=== PATIENT | male | born 1970 | race Caucasian/White ===

== ENCOUNTER 2018-10-24 10:37 | Inpatient (IN) ==
[2018-10-24] MEDS ORDERED: IOPAMIDOL 100 ML BOTTLE IV ONE (10:38)
[2018-10-24] MEDS ORDERED: IPRATROPIUM/ALBUTEROL 3 ML AMPUL.NEB NEB ONE ×2 (10:43→15:42)
[2018-10-24] MEDS ORDERED: NITROGLYCERIN 1 GM OINT.TOP TD ONE (10:48)
[2018-10-24] MEDS ORDERED: ASPIRIN 81 MG TAB.CHEW CHEWED ONE (10:51)
[2018-10-24] MEDS ORDERED: methylPREDNISolone SOD SUCC 125 MG/2 ML VIAL IV ONE (10:54)
--- NOTE | 2018-10-24 10:58 | Emergency Department Note ---
SOB HPI - General Chief Complaint: Shortness of Breath/Dyspnea Stated Complaint: SOB, Chest Pressure Time Seen by Provider: 10/24/18 10:54 Source: patient Mode of arrival: ambulatory Limitations: no limitations - History of Present Illness Patient presents to ED with a history of shortness of breath progressive for the lastweek. His breathing has been getting progressively worse over the course of the last week. Initially size practitioner and was put on the medication for left knee swelling, this seemed to develop into generalized edema that he had of his hands as well as feet and legs. 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 He thought he was a rear having a reaction to the medication stop that medicine and then they put him on some medicine for swelling but he was progressively developing more swelling up. Progressive dyspnea over the course of the last week not associated with chest pain but with lower leg edema but he's also developed hand edema and generalized body swelling. Positive family of cardiac history on his father's side. Smoker one pack a day. MD Complaint: shortness of breath, cough Onset (ago): day(s) Severity: severe Consistency/Duration: constant Improves with: oxygen Worsens with: lying flat, exertion Associated symptoms: Denies: chest pain - Related Data Home Medications Medication Instructions Recorded Confirmed Unobtainable 10/24/18 10/24/18 Allergies Allergy/AdvReac Type Severity Reaction Status Date / Time No Known Drug Allergies Allergy Verified 10/24/18 10:42 Review of Systems Constitutional: Denies: fever, chills Cardiovascular: Reports: dyspnea on exertion, orthopnea, edema Respiratory: Reports: shortness of breath, cough, other (nonproductive cough.) Past Medical History - Past Medical History Source: nursing notes reviewed Medical history: Reports: arthritis, obesity Surgical history ED: Reports: non-contributory Family history: Reports: CAD/NV, other (father of myocardial infarction at an early age.) - Social History smoking status: Current every day smoker Alcohol use: Reports: Occasionally Drug use: Reports: none Physical Exam Limitations: no limitations General appearance: alert, in distress Head: atraumatic, normocephalic, normal inspection Eye: Present: normal appearance, PERRL, EOMI. Absent: conjunctival injection ENT: normal exam, normal oropharynx, mucous membranes moist, TM's normal bilaterally, normal external ear exam, other (facial erythema) Neck: Present: normal inspection, full ROM, trachea midline. Absent: tenderness, meningismus Chest: Present: normal inspection, symmetric chest wall rise Respiratory: Present: normal lung sounds bilaterally, respiratory distress, rales/crackles, wheezes, accessory muscle use, prolonged expiratory phase Cardiovascular: Present: regular rate, tachycardia, normal heart sounds Abdominal: Present: distention, diminished bowel sounds. Absent: tenderness, guarding Extremities: Present: full ROM, normal capillary refill, pedal edema, pretibial edema. Absent: tenderness, cyanosis, clubbing Back: Present: normal inspection, full ROM. Absent: CVA tenderness (R), CVA tenderness (L), paraspinal tenderness Neurological: Present: alert, oriented X3, CN II-XII intact. Absent: motor sensory deficit Psychiatric: Present: normal affect Skin: Present: warm, diaphoretic, rash, erythema, other (erythematous rash to the distended portion of the lower abdomen.). Absent: cyanosis Course - Reevaluation(s) Reevaluation #1: Patient Initially given O2, nonrebreather. His oxygenation was 70% on room air initially on arrival. Notably also his diastolic blood pressure was 120, 180- 190 systolic. He has generalized diffuse edema throughout especially the lower extremities, 12-lead EKG nondiagnostic no acute ST elevation however does have late transition. Chest x-ray not showing any acute pulmonary edema or infiltrates. Patient started on breathing treatments, Solu-Medrol as he does have a significant smoking history. One pack-a-day smoker for many years. Reevaluation #2: Patient started on DuoNeb treatments, Solu-Medrol as well as nitroglycerin as he had uncontrolled hypertension. In reviewing his labs it does appear that he has a response to the Solu-Medrol as well as the breathing treatments, we were able to wean him from initially nonrebreather to 5 L nasal cannula. I spoke with Dr. Vasquez regarding his labs and presentation and he wanted to get a CT of his chest. This was ordered. 12-lead EKG showing sinus tachycardia. Late transition. Indeterminate IVCD. Vital Signs Temperature 97.3 F 10/24/18 10:38 Pulse Rate 120 H 10/24/18 10:38 Respiratory Rate 32 H 10/24/18 10:38 Pulse Oximetry (%) 76 L 10/24/18 10:38 Temperature 97.3 F 10/24/18 10:38 Pulse Rate 101 H 10/24/18 11:47 Respiratory Rate 20 10/24/18 11:47 Blood Pressure 157/82 10/24/18 11:47 Pulse Oximetry (%) 100 10/24/18 11:47 Shortness of Breath/Dyspnea - MDM Narrative Medical decision making narrative: Impression COPD exacerbation. Untreated hypertension. Diabetes mellitus, new onset. Morbid obesity. - Lab Data Result diagrams: 10/24/18 10:52 10/24/18 10:52 Lab Results 10/24/18 10/24/18 10/24/18 Range/Units 10:52 10:52 10:52 WBC 8.7 (4.5-11.0) K/mcL RBC 5.39 (4.50-5.90) M/mcL Hgb 16.0 (13.5-16.5) g/dL Hct 50.6 (41.0-55.0) % MCV 93.8 (80.0-100.0) fL MCH 29.6 (26.0-34.0) pg MCHC 31.6 (31.0-36.0) g/dL RDW 14.2 (11.5-14.5) % Plt Count 183 (140-440) K/mcL MPV 9.4 (7.4-10.4) fL Gran % 77.4 (38.0-78.0) % Lymph % (Auto) 12.8 L (15.5-49.0) % [place] % (Auto) 8.1 (1.0-12.0) % Eos % (Auto) 1.5 (0.0-7.0) % Baso % (Auto) 0.2 (0.0-2.0) % Gran # 6.7 (1.8-8.0) K/mcL Lymph # (Auto) 1.1 L (1.5-4.8) K/mcL [place] # (Auto) 0.7 (0.1-0.9) K/mcL Eos # (Auto) 0.1 (0.0-0.7) K/mcL Baso # (Auto) 0 (0.0-0.3) K/mcL Sodium 135 (133-145) mmol/L Potassium 4.2 (3.3-5.1) mmol/L Chloride 92 L (96-108) mmol/L Carbon Dioxide 31 H (22-30) mmol/L Anion Gap 12.0 (8-16) BUN 7 (6-20) mg/dl Creatinine 0.9 (0.7-1.2) mg/dl GFR Calculation 101 Glucose 157 H (70-105) mg/dL Calcium 8.7 (8.6-10.4) mg/dl Total Bilirubin 0.4 (0.0-1.0) mg/dL AST 28 (0-37) U/l ALT 43 H (0-40) U/l Alkaline Phosphatase 128 H (39-117) U/L Total Creatine Kinase 147 (24-195) IU/L CK-MB (CK-2) 3.3 (0-4.9) ng/ml Myoglobin 41 (28-72) ng/ml Troponin T < 0.01 (0-0.03) ng/ml NT-Pro-B Natriuret Pep 291.9 H (0-125) pg/ml Total Protein 7.1 (5.9-8.4) gm/dL Albumin 3.7 (3.2-5.2) gm/dL Globulin 3.4 (2.2-3.7) gm/dL Albumin/Globulin Ratio 1.1 (1.0-2.3) Critical Care Time Critical Care Time: Yes Total Critical Care Time: 20 Attestation: I tested the fact that he required critical care 20 minutes. This is due to the fact that he had acute respiratory distress with hypoxia, elevatd respiratory rate associated with respiratory distress as well as hypertensive crisis. Disposition Pt seen by FORESTER AIDE/PA only: No Clinical Impression: Acute exacerbation of chronic obstructive airways disease Disposition: Xfer As Inpt ([facility]) Condition: Fair Referrals: Lucía Xavier ARNP [Primary Care Provider] -
[2018-10-24] MEDS ORDERED: NITROGLYCERIN/D5W 25 MG/250 ML BOTTLE IV SCH (11:00)
[2018-10-24] MEDS ORDERED: 0.9 % SODIUM CHLORIDE 250 ML IV SCH (11:00)
--- NOTE | 2018-10-24 11:09 | XRay Report ---
HISTORY: Shortness of breath with chest pain and pressure FINDINGS: There is respiration motion artifact along the diaphragms. The lungs are clear normally expanded. Heart size is within normal limits but magnified by portable technique. There is no congestive heart failure or pleural effusion. IMPRESSION: No acute abnormality Interpreted and Authenticated by: Butch Cueto 10/24/18
[2018-10-24] MEDS ORDERED: LACTATED RINGERS 1,000 ML IV SCH (11:15)
[2018-10-24] MEDS: IPRATROPIUM/ALBUTEROL 3 ML AMPUL.NEB NEB SCH ×6 (11:25→23:11)
[2018-10-24 11:29] LABS: Basophils # (Auto) 0 K/mcL (0.0-0.3); Basophils % (Auto) 0.2 % (0.0-2.0); Eosinophils # (Auto) 0.1 K/mcL (0.0-0.7); Eosinophils % (Auto) 1.5 % (0.0-7.0); Granulocytes % (Auto) 77.4 % (38.0-78.0); Lymphocytes # (Auto) 1.1 K/mcL (1.5-4.8); Lymphocytes % (Auto) 12.8 % (15.5-49.0); Mean Cell Volume 93.8 fL (80.0-100.0); Mean Corpuscular HGB Conc 31.6 g/dL (31.0-36.0); Monocytes # (Auto) 0.7 K/mcL (0.1-0.9); Monocytes % (Auto) 8.1 % (1.0-12.0); Platelet Count 183 K/mcL (140-440); RBC 5.39 M/mcL (4.50-5.90); Red Cell Distribution Width 14.2 % (11.5-14.5)
[2018-10-24 11:59] LABS: Creatine Kinase MB 3.3 ng/ml (0-4.9); Myoglobin 41 ng/ml (28-72); proBNP 291.9 pg/ml (0-125)
[2018-10-24 12:25] LABS: ALT/SGPT 43 U/l (0-40); Albumin 3.7 gm/dL (3.2-5.2); Albumin/Globulin Ratio 1.1 (1.0-2.3); Alkaline Phosphatase 128 U/L (39-117); Blood Urea Nitrogen 7 mg/dl (6-20); Creatine Kinase 147 IU/L (24-195)
--- NOTE | 2018-10-24 13:56 | Internal Med History&Physical ---
Medical - H&P: [facility] Patient information: Note initiated : 10/24/18 at 1:54 pm Service Date, if different from initiated Date: [] Patient: Arnie Diaz a 48 y/o M admitted on for SOB, Chest Pressure. Chief Complaint: [] Chief complaint: SOb History of present illness: Mr. 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 Patient endorses to a gradual onset of fluid retention along with increasing fatigue. He also complains of degenerative joint disease with bilateral knee pain for which he has been on NSAIDs. Swelling progressed to the point patient can barely flex his hand legs and fingers. Over the last few days he has not been able to function. He would get extremely dyspneic with limited exertion and even on rest. He has not been able to perform ADLs or his job due to above symptoms. He denies associated fever, chest pain, lightheadedness, dizziness,, productive sputum, loss of consciousness. He continues to smoke a pack a day. He presents to the ER with above symptoms. Initial workup was consistent with hypoxic hypercapnic respiratory failure with ABG 7.23/92/61. Patient was initiated on BiPAP. CT angiogram revealed bronchopneumonia. Hospitalist services were consulted. At the time evaluation patient is currently on BiPAP. He is able to talk in short sentences. Was able to endorse history as above. Denies chest pain, sick contacts, changes in medications. Vaccination status unknown. 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 Smokes a pack a day One drink daily Smoking status: Current every day smoker Have you smoked in the last 12 months: Yes Time spent discussing smoking cessation with patient: 3 to 10 minutes Alcohol use: sober Medical - H&P: Meds Home Medications Medication Instructions Recorded Confirmed Type traMADol [Ultram] 50 - 100 mg PO Q6-8HP PRN 10/24/18 10/24/18 History Allergies Allergy/AdvReac Type Severity Reaction Status Date / Time No Known Drug Allergies Allergy Verified 10/24/18 10:42 Medical - H&P: Exam - Constitutional Vitals: Temp Pulse Resp BP Pulse Ox 97.3 F 98 H 27 H 138/77 92 10/24/18 10:38 10/24/18 12:57 10/24/18 12:57 10/24/18 12:47 10/24/18 12:57 General appearance: morbidly obese Exam: Generalized edema Anxious and labored eye movements symmetrical Oral cavity dry No ear discharge Head normocephalic Neck no lymphadenopathy S1 and S2 regular rhythm tachycardia Diminished breath sounds bases . Late inspiratory crackles, expiratory rhonchi Abdomen pendulous with generalized edema/erythematous pannus Lower extremity dependent pitting edema all the way up to the toes Psych anxious and labored but cooperative Neuro nonfocal Medical - H&P: Reslt - Labs CBC & Chem 7: 10/25/18 03:57 10/25/18 03:57 Labs: Short CBC 10/24/18 Range/Units 10:52 WBC 8.7 (4.5-11.0) K/mcL Hgb 16.0 (13.5-16.5) g/dL Hct 50.6 (41.0-55.0) % Plt Count 183 (140-440) K/mcL BMP 10/24/18 10:52 Sodium 135 Potassium 4.2 Chloride 92 L Carbon Dioxide 31 H BUN 7 Creatinine 0.9 Glucose 157 H Calcium 8.7 Cardiac Enzymes 10/24/18 10/24/18 Range/Units 10:52 10:52 Total Creatine Kinase 147 (24-195) IU/L CK-MB (CK-2) 3.3 (0-4.9) ng/ml Troponin T < 0.01 (0-0.03) ng/ml Liver Function 10/24/18 Range/Units 10:52 Total Bilirubin 0.4 (0.0-1.0) mg/dL AST 28 (0-37) U/l ALT 43 H (0-40) U/l Alkaline Phosphatase 128 H (39-117) U/L Albumin 3.7 (3.2-5.2) gm/dL Medical - H&P: A/P (1) Acute exacerbation of chronic obstructive airways disease Current visit: Yes Status: Acute * Acute Hypercapnic hypoxic respiratory failure-secondary to bronchopneumonia with COPD exacerbation ABG 7.23/92/56. Continue noninvasive ventilation/supplemental oxygen. Echocardiogram to rule out cardiac etiology. * Acute bronchopneumonia-start antibiotic coverage/IV steroids and bronchodilators * COPD exacerbation-continue management per guidelines, bronchodilators/IV ster oids/NIPPV * Anasarca likely possible in the setting of morbid obesity/sleep apnea resulting in right heart overload/cor pulmonale. Continue aggressive diuresis. Echocardiogram. * Morbid obesity. Likely obesity hypoventilation syndrome * Full code * Prophylaxis heparin Plan * ICU admit * Noninvasive ventilation * Aggressive diuresis * Serial blood gas/chest imaging/echocardiogram * Antibiotic coverage/pulmonary toilet Total time spent on admission physical in excess of 70 minutes. Additional Crit ical care time spent over 35 minutes on review of blood gases/imaging/management of noninvasive ventilation/hypoxic hypercapnic respiratory failure
--- NOTE | 2018-10-24 14:00 | Cat Scan Report ---
CLINICAL INFORMATION: COMPARISON: None TECHNIQUE: Axial images obtained through the chest. intravenous contrast administration was administered, and scanning was performed during pulmonary arterial phase. With the initial injection of contrast, we did not detect central enhancement of the pulmonary artery. Image acquisition was then performed too late to identify the pulmonary arteries. A second injection was then made. This was also inadequate due to the patient's circulatory pattern resulting in poor opacification of the peripheral pulmonary arteries. Sagittally and coronally reformatted images were obtained. MIP reformatted images. FINDINGS: The pulmonary arteries are difficult to evaluate. The central pulmonary arteries are normal without evidence of emboli. The peripheral pulmonary arteries cannot be evaluated. Patient has abnormally small bronchi in both lungs. The greatest narrowing is in the right middle lobe. Right middle lobe bronchus is 2 mm in diameter. No mucous plugging or tumor are seen within the airways. There is thickening of the bronchial [place], most notable in the lower lobes. There are also patchy alveolar opacities in the lung parenchyma adjacent to the narrowed and inflamed airways. There is involvement in all lobes, with the greatest involvement in the lower lobes. No lobar consolidation is present and there is no pleural effusion. There is no evidence of emphysema. There are abnormally enlarged lymph nodes in the mediastinum and both rey. The largest is in the central portion of the right hilum and measures 2 x 3 cm. There are several lymph nodes in the mediastinum. The largest is in the pretracheal retrocaval space and measures 1.7 x 2.2 cm. The largest lymph node in the left hilum is 1.8 x 2.0 cm. No pleural effusion is present. The heart is normal in size and contour. The aorta is normal in caliber. There is no significant plaque formation in the aorta nor the coronary arteries. There is moderate generalized fatty infiltration of the liver. IMPRESSION: Severely narrowed second and third order bronchi in both lungs. This may be due to a combination of bronchitis and congenitally small bronchi. Bilateral bronchial pneumonia Enlarged lymph nodes in the mediastinum and both rey. These are nonspecific and could be an inflammatory reaction to the airway disease or due to an occult malignancy. No gross evidence of pulmonary emboli Dr. Philip and Dr. Tucker were called with the results Interpreted and Authenticated by: Butch Cueto 10/24/18
[2018-10-24 14:56] LABS: Appearance,Urine CLEAR; Bacteria,Urine 0 /hpf (0); Bilirubin,Urine NEG (NEG); Color,Urine YELLOW; Glucose,Urine (UA) 50 mg/dL (NEG); Leukocyte Esterase,Urine NEG /uL (NEG); Mucus,Urine FEW /hpf (0); Protein,Urine >=500 mg/dL (NEG); Specific Gravity,Urine 1.023 (1.000-1.035); Urine Blood NEG mg/dL (<0.03); Urine RBC 2 /hpf (0-1); Urine Squamous Epithelial Cell < 1 /hpf (0-4); Urine WBC 1 /hpf (0-4); Urobilinogen,Urine NEG (NEG)
[2018-10-24] MEDS ORDERED: ACETAMINOPHEN 325 MG TABLET PO PRN (15:36)
[2018-10-24] MEDS ORDERED: ONDANSETRON 4 MG/2 ML VIAL IV PRN (15:36)
[2018-10-24] MEDS ORDERED: ACETAMINOPHEN 1,000 MG/100 ML BOTTLE IV PRN (15:36)
[2018-10-24] MEDS ORDERED: guaiFENesin/CODEINE 10 ML UDC PO PRN (15:36)
[2018-10-24] MEDS ORDERED: MAGNESIUM SULFATE 2 GM/50 ML BAG IV PRN (15:36)
[2018-10-24] MEDS ORDERED: POTASSIUM CHLORIDE 20 MEQ PACKET PO PRN (15:36)
[2018-10-24] MEDS: 0.9 % SODIUM CHLORIDE 10 ML SYRINGE IV SCH ×2 (15:58→21:26)
[2018-10-24] MEDS: FUROSEMIDE 40 MG/4 ML VIAL IV SCH ×2 (15:58→21:26)
[2018-10-24] MEDS: 0.9 % SODIUM CHLORIDE 1,000 ML IV SCH (16:16)
[2018-10-24] MEDS: cefTRIAXone 2 GM in DEXTROSE 5% IN WATER 50 ML IV SCH (16:17)
[2018-10-24] MEDS: LEVOFLOXACIN 750 MG/150 ML BAG IV SCH (17:02)
[2018-10-24] MEDS: BUDESONIDE 0.5 MG/2 ML AMPUL.NEB NEB SCH (19:12)
[2018-10-24] MEDS: DOCUSATE SODIUM 100 MG CAPSULE PO SCH (20:34)
[2018-10-24] MEDS: SENNOSIDES/DOCUSATE SODIUM 1 TAB TABLET PO SCH (20:34)
[2018-10-24] MEDS: HEPARIN 5,000 UNIT/ML VIAL SQ SCH (20:38)
[2018-10-24] MEDS: methylPREDNISolone SOD SUCC 40 MG/ML VIAL IV SCH (20:39)
[2018-10-25] MEDS: IPRATROPIUM/ALBUTEROL 3 ML AMPUL.NEB NEB SCH ×6 (03:21→22:41)
[2018-10-25] MEDS: 0.9 % SODIUM CHLORIDE 10 ML SYRINGE IV SCH ×3 (05:31→21:35)
[2018-10-25] MEDS: FUROSEMIDE 40 MG/4 ML VIAL IV SCH (05:31)
[2018-10-25 05:52] LABS: Mean Cell Volume 94.3 fL (80.0-100.0); Mean Corpuscular HGB Conc 31.3 g/dL (31.0-36.0); Platelet Count 176 K/mcL (140-440); RBC 5.22 M/mcL (4.50-5.90); Red Cell Distribution Width 14.5 % (11.5-14.5)
[2018-10-25 06:10] LABS: ALT/SGPT 35 U/l (0-40); Albumin 3.4 gm/dL (3.2-5.2); Alkaline Phosphatase 110 U/L (39-117); Bilirubin,Direct < 0.2 mg/dL (0.0-0.3); Blood Urea Nitrogen 10 mg/dl (6-20); Gamma Glutamyl Transpeptidase 59 U/L (8-61); Uric Acid 5.2 mg/dL (2.5-8.0)
[2018-10-25 06:31] LABS: Band Neutrophils % 5 % (0-10); Lymphocytes % 11 % (15-49); Monocytes % (Manual) 2 % (1-12); Platelet Estimate NORMAL (NORMAL); RBC Morphology NORMAL (NORMAL); Segmented Neutrophils % 81 % (38-78)
[2018-10-25] MEDS: BUDESONIDE 0.5 MG/2 ML AMPUL.NEB NEB SCH ×2 (07:12→19:05)
[2018-10-25] MEDS: DOCUSATE SODIUM 100 MG CAPSULE PO SCH ×2 (09:58→21:35)
[2018-10-25] MEDS: MULTIVIT,THER IRON,CA,FA & MIN 1 TABLET PO SCH (09:58)
[2018-10-25] MEDS: HEPARIN 5,000 UNIT/ML VIAL SQ SCH ×2 (09:58→21:35)
[2018-10-25] MEDS: cefTRIAXone 2 GM in DEXTROSE 5% IN WATER 50 ML IV SCH (09:58)
[2018-10-25] MEDS: acetaZOLAMIDE SOD 500 MG VIAL IV SCH (09:58)
[2018-10-25] MEDS: methylPREDNISolone SOD SUCC 40 MG/ML VIAL IV SCH (09:58)
--- NOTE | 2018-10-25 10:35 | Internal Med Progress Note ---
Medical - PN: Subj Patient information: Note initiated : 10/25/18 at 10:32 am Service Date, if different from initiated Date: [] Patient: Arnie Diaz a 48 y/o M admitted on 10/24/18 for SOB, Chest Pressure. Chief Complaint: [] Interval history: Mr. 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 Patient endorses to a gradual onset of fluid retention along with increasing fatigue. He also complains of degenerative joint disease with bilateral knee pain for which he has been on NSAIDs. Swelling progressed to the point patient can barely flex his hand legs and fingers. Over the last few days he has not been able to function. He would get extremely dyspneic with limited exertion and even on rest. He has not been able to perform ADLs or his job due to above symptoms. He denies associated fever, chest pain, lightheadedness, dizziness,, productive sputum, loss of consciousness. He continues to smoke a pack a day. He presents to the ER with above symptoms. Initial workup was consistent with hypoxic hypercapnic respiratory failure with ABG 7.23//61. Patient was initiated on BiPAP. CT angiogram revealed bronchopneumonia. Hospitalist services were consulted. At the time evaluation patient is currently on BiPAP. He is able to talk in short sentences. Was able to endorse history as above. Denies chest pain, sick contacts, changes in medications. Vaccination status unknown. Other than NSAIDs he denies taking any new medication or substance abuse 10/25-patient doing better. Over 6000 cc net negative fluid balance with aggressive diuresis. Echocardiogram reveals four-chamber enlargement with EF 40-50%. Continue diuresis/noninvasive ventilation. Repeat ABG pending. Attempt off BiPAP today. Clinically improving. Improved pannus inflammation. Repeat chest imaging in 24 hours. No overnight fever chills nausea vomiting or concerns per nursing staff. - Constitutional Vitals: Vital Signs Temp Pulse Resp BP Pulse Ox 98.4 F 84 21 113/80 86 L 10/25/18 08:01 10/25/18 07:16 10/25/18 09:59 10/25/18 09:01 10/25/18 09:59 Period Temp Pulse Resp BP Sys/Nguyễn Pulse Ox Last 24 Hr 97.3 F-99.6 F 70-120 11-35 112-187/59-120 76-100 Intake and Output 10/24/18 10/25/18 10/25/18 21:59 05:59 13:59 Intake Total 1410 150 Output Total 3660 3345 1135 Balance -1664 -3345 -985 Weight 385 lb 6 oz Intake & Output: Intake & Output 10/24/18 10/25/18 10/25/18 21:59 05:59 13:59 Intake Total 1410 150 Output Total 3660 3345 1135 Balance -2259 -3345 -985 Weight 385 lb 6 oz Intake: IV 1410 150 Sodium Chloride 0.9% 1,000 ml @ 93 50 mls/hr IV .Q20H JARERD Rx#: [id number] Sodium Chloride 0.9% 250 ml @ 137 20 mls/hr IV .[id number] JARRED Rx#: [id number] Lactated Ringers 1,000 ml @ 50 1000 mls/hr IV .Q20H JARRED Rx#: [id number] NITROGLYCERIN/D5W 25 mg In 250 30 ml @ 5 MCG/MIN 3 mls/hr IV . Q24H JARRED Rx#:[id number] Rocephin 2 gm In Dextrose 5% in 50 Water 50 ml @ 100 mls/hr IV Q24H JARRED Rx#:[id number] Output: Urine Catheter Amount 3661 4618 1135 Other: Urine Appearance Clear Clear Clear Uretheral (Esteves) Clear Clear Urine Color Dark Yellow Bright Yellow Pale Uretheral (Esteves) Bright Yellow Pale Urine Odor Normal General appearance: morbidly obese Exam: Alert and oriented On noninvasive ventilation Foleys draining clear urine Improving lymphedema/anasarca Nonlabored breathing Medical - PN: Obj Da - Labs CBC & Chem 7: 10/25/18 03:57 10/25/18 03:57 Labs: Abnormal Lab Results 10/25/18 10/25/18 10/24/18 03:57 03:57 14:20 Lymph % (Auto) Lymph # (Auto) Seg Neutrophils % 81 H Lymphocytes % 11 L Nucleated RBCs 1 H Chloride 94 L Carbon Dioxide 35 H Glucose 163 H Calcium 8.5 L ALT Alkaline Phosphatase NT-Pro-B Natriuret Pep Urine Protein >=500 A Urine Glucose (UA) 50 A Urine RBC 2 H 10/24/18 10/24/18 10:52 10:52 Lymph % (Auto) 12.8 L Lymph # (Auto) 1.1 L Seg Neutrophils % Lymphocytes % Nucleated RBCs Chloride 92 L Carbon Dioxide 31 H Glucose 157 H Calcium ALT 43 H Alkaline Phosphatase 128 H NT-Pro-B Natriuret Pep 291.9 H Urine Protein Urine Glucose (UA) Urine RBC Meds: Medications Acetaminophen (Tylenol) 650 mg PO Q4-6HP PRN PRN Reason: PAIN/FEVER > 101 Acetazolamide Sodium (Diamox) 250 mg IV DAILY [facility] Stop: 10/27/18 09:01 Last Admin: 10/25/18 09:58 Dose: 250 mg Documented by: Albuterol/Ipratropium (Duoneb) 3 ml NEB Q4HRT [facility] Last Admin: 10/25/18 07:12 Dose: 3 ml Documented by: Budesonide (Pulmicort) 0.5 mg NEB Q12 [facility] Last Admin: 10/25/18 07:12 Dose: 0.5 mg Documented by: Docusate Sodium (Colace) 100 mg PO BID [facility] Last Admin: 10/25/18 09:58 Dose: 100 mg Documented by: Furosemide (Lasix) 20 mg IV Q8 [facility] Guaifenesin/Codeine Phosphate (Robitussin Ac) 10 ml PO Q4HP PRN PRN Reason: Cough Heparin Sodium (Porcine) (Heparin) 5,000 unit SQ Q12 [facility] Last Admin: 10/25/18 09:58 Dose: 5,000 unit Documented by: Ceftriaxone Sodium 2 gm/ (Dextrose) 50 mls @ 100 mls/hr IV Q24H [facility]; Protocol Last Admin: 10/25/18 09:58 Dose: 100 mls/hr Documented by: Levofloxacin (Levaquin) 750 mg in 150 mls @ 100 mls/hr IV Q24H [facility]; Protocol Last Infusion: 10/25/18 07:45 Dose: Infused Documented by: Magnesium Sulfate (Magnesium Sulfate) 2 gm in 50 mls @ 50 mls/hr IV UD PRN PRN Reason: MG = or < 1.7 Sodium Chloride (Sodium Chloride 0.9%) 1,000 mls @ 50 mls/hr IV .Q20H [facility] Stop: 10/27/18 03:35 Last Infusion: 10/24/18 18:07 Dose: 0 mls/hr Documented by: Acetaminophen (Ofirmev) 1,000 mg in 100 mls @ 200 mls/hr IV Q6HP PRN PRN Reason: PAIN/FEVER > 101 Last Infusion: 10/24/18 19:50 Dose: Infused Documented by: Iron Carb/Multivit/Maury/Folic Acid (Multivitamin W/Minerals) 1 tab PO DAILY [facility] Last Admin: 10/25/18 09:58 Dose: 1 tab Documented by: Methylprednisolone Sodium Succinate (Solu-Medrol) 40 mg IV Q12 [facility] Last Admin: 10/25/18 09:58 Dose: 40 mg Documented by: Ondansetron HCl (Zofran) 4 mg IV Q4-6HP PRN PRN Reason: Nausea And Vomiting Potassium Chloride (Klor-Con) 40 meq PO DAILYP PRN PRN Reason: K+ < 3.5 Senna/Docusate Sodium (Senna Plus Tablet) 1 tab PO HS [facility] Last Admin: 10/24/18 20:34 Dose: Not Given Documented by: Sodium Chloride (Saline Flush) 10 ml IV Q8 [facility] Last Admin: 10/25/18 05:31 Dose: 10 ml Documented by: Medical - PN: A/P - Time Spent With Patient Total time spent is greater than 50% in coordination of care (as documented) at patient's floor/unit and/or counseling patient: Greater than 35 minutes (critical care time) (1) Acute exacerbation of chronic obstructive airways disease Status: Acute Assessment and plan: * Acute Hypercapnic hypoxic respiratory failure-secondary to bronchopneumonia with COPD exacerbation . Improved serial ABG with noninvasive ventilation.. Attempt weaning NIPPV. Echocardiogram four-chamber enlargement with EF 40% * Acute bronchopneumonia-start antibiotic coverage/IV steroids and bronchodilators * Anasarca clinically improving. * NYHA class III systolic heart failure. Start low-dose beta kain. Consider DIANA inhibitor prior to discharge * Morbid obesity. High probability OHS/MARKO in light of CO2 retention. Schedule sleep study as an outpatient on discharge * Full code * Prophylaxis heparin Plan * Gradually wean NIPPV * Continue diuresis * Start low-dose beta kain in light of EF 40% * Serial blood gas/chest imaging * Antibiotic coverage/pulmonary toilet * Schedule sleep study as outpatient * Schedule outpatient cardiology follow-up Current Visit: Yes Medical - PN: Qual - VTE Deep Vein Thrombosis/Pulmonary Embolism Present on Admission: No
[2018-10-25] MEDS: LEVOFLOXACIN 750 MG/150 ML BAG IV SCH (11:13)
[2018-10-25] MEDS: METOPROLOL SUCCINATE 25 MG TAB.XL.24H PO SCH (11:14)
[2018-10-25] MEDS: FUROSEMIDE 20 MG/2 ML VIAL IV SCH ×2 (15:23→21:34)
[2018-10-25] MEDS: 0.9 % SODIUM CHLORIDE 1,000 ML IV SCH ×2 (15:24→15:25)
[2018-10-25] MEDS: SENNOSIDES/DOCUSATE SODIUM 1 TAB TABLET PO SCH (21:35)
[2018-10-26] MEDS: IPRATROPIUM/ALBUTEROL 3 ML AMPUL.NEB NEB SCH ×2 (02:49→07:38)
[2018-10-26] MEDS: FUROSEMIDE 20 MG/2 ML VIAL IV SCH ×2 (05:47→20:26)
[2018-10-26] MEDS: 0.9 % SODIUM CHLORIDE 10 ML SYRINGE IV SCH ×4 (05:48→20:27)
[2018-10-26 06:02] LABS: Mean Cell Volume 94.6 fL (80.0-100.0); Mean Corpuscular HGB Conc 31.3 g/dL (31.0-36.0); Platelet Count 196 K/mcL (140-440); RBC 5.31 M/mcL (4.50-5.90); Red Cell Distribution Width 14.8 % (11.5-14.5)
[2018-10-26 06:31] LABS: ALT/SGPT 43 U/l (0-40); Albumin 3.5 gm/dL (3.2-5.2); Alkaline Phosphatase 109 U/L (39-117); Bilirubin,Direct < 0.2 mg/dL (0.0-0.3); Blood Urea Nitrogen 21 mg/dl (6-20); Gamma Glutamyl Transpeptidase 63 U/L (8-61); Uric Acid 6.7 mg/dL (2.5-8.0)
[2018-10-26 06:52] LABS: Eosinophils % (Manual) 1 % (0-7); Lymphocytes % 35 % (15-49); Monocytes % (Manual) 9 % (1-12); Platelet Estimate NORMAL (NORMAL); RBC Morphology NORMAL (NORMAL); Segmented Neutrophils % 54 % (38-78)
[2018-10-26] MEDS: BUDESONIDE 0.5 MG/2 ML AMPUL.NEB NEB SCH (07:38)
[2018-10-26] MEDS ORDERED: LISINOPRIL 5 MG TABLET PO SCH (09:00)
[2018-10-26] MEDS ORDERED: IPRATROPIUM/ALBUTEROL 3 ML AMPUL.NEB NEB PRN ×2 (09:30→11:41)
[2018-10-26] MEDS ORDERED: BUDESONIDE 0.5 MG/2 ML AMPUL.NEB NEB PRN ×2 (09:31→11:41)
[2018-10-26] MEDS: METOPROLOL SUCCINATE 25 MG TAB.XL.24H PO SCH (09:41)
[2018-10-26] MEDS: cefTRIAXone 2 GM in DEXTROSE 5% IN WATER 50 ML IV SCH (09:41)
[2018-10-26] MEDS: DOCUSATE SODIUM 100 MG CAPSULE PO SCH ×3 (09:41→21:06)
[2018-10-26] MEDS: MULTIVIT,THER IRON,CA,FA & MIN 1 TABLET PO SCH (09:41)
[2018-10-26] MEDS: acetaZOLAMIDE SOD 500 MG VIAL IV SCH (09:41)
[2018-10-26] MEDS: HEPARIN 5,000 UNIT/ML VIAL SQ SCH ×2 (09:42→20:26)
--- NOTE | 2018-10-26 09:59 | Internal Med Progress Note ---
Medical - PN: Subj Patient information: Note initiated : 10/26/18 at 9:56 am Service Date, if different from initiated Date: [] Patient: Arnie Diaz a 48 y/o M admitted on 10/24/18 for SOB, Chest Pressure. Chief Complaint: [] Interval history: Mr. 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 Patient endorses to a gradual onset of fluid retention along with increasing fatigue. He also complains of degenerative joint disease with bilateral knee pain for which he has been on NSAIDs. Swelling progressed to the point patient can barely flex his hand legs and fingers. Over the last few days he has not been able to function. He would get extremely dyspneic with limited exertion and even on rest. He has not been able to perform ADLs or his job due to above symptoms. He denies associated fever, chest pain, lightheadedness, dizziness,, productive sputum, loss of consciousness. He continues to smoke a pack a day. He presents to the ER with above symptoms. Initial workup was consistent with hypoxic hypercapnic respiratory failure with ABG 7.. Patient was initiated on BiPAP. CT angiogram revealed bronchopneumonia. Hospitalist services were consulted. At the time evaluation patient is currently on BiPAP. He is able to talk in short sentences. Was able to endorse history as above. Denies chest pain, sick contacts, changes in medications. Vaccination status unknown. Other than NSAIDs he denies taking any new medication or substance abuse 10/25-patient doing better. Over 6000 cc net negative fluid balance with aggressive diuresis. Echocardiogram reveals four-chamber enlargement with EF 40-50%. Continue diuresis/noninvasive ventilation. Repeat ABG pending. Attempt off BiPAP today. Clinically improving. Improved pannus inflammation. Repeat chest imaging in 24 hours. No overnight fever chills nausea vomiting or concerns per nursing staff. 10/26- patient off noninvasive ventilation. Much improved lymphedema. Over 10,000 cc net negative fluid balance. Lower diuretic dose to 40 mg Lasix once daily on discharge. Also recommend fluid restriction and follow cardiology for evaluation of dilated cardiomyopathy as outpatient. Transition of medical floor later today if remains off BiPAP. Continue beta kain and start low-dose DIANA inhibitor. De-escalate antibiotics to Levaquin only for bronchopneumonia. - Constitutional Vitals: Vital Signs Temp Pulse Resp BP Pulse Ox 98.1 F 87 14 137/95 100 10/26/18 08:01 10/26/18 07:46 10/26/18 09:01 10/26/18 09:01 10/26/18 08:01 Period Temp Pulse Resp BP Sys/Nguyễn Pulse Ox Last 24 Hr 97.7 F-98.8 F 86-103 12-25 104-141/61-100 86-100 Intake and Output 10/25/18 10/26/18 10/26/18 21:59 05:59 13:59 Intake Total 1267 410 Output Total 2355 1600 870 Balance -1088 -1190 -870 Weight 369 lb 3 oz Intake & Output: Intake & Output 10/25/18 10/26/18 10/26/18 21:59 05:59 13:59 Intake Total 1267 410 Output Total 2355 1600 870 Balance -1088 -1190 -870 Weight 369 lb 3 oz Intake: IV 907 50 Sodium Chloride 0.9% 1,000 ml @ 907 50 mls/hr IV .Q20H [facility] Rx#: [id number] Oral 360 360 Output: Urine Catheter Amount 2355 1600 870 Other: Urine Appearance Clear Clear Clear Uretheral (Esteves) Clear Clear Urine Color Bright Yellow Dark Yellow Pale Uretheral (Esteves) Pale Pale Bright Yellow Bright Yellow General appearance: morbidly obese, no acute distress Exam: Off noninvasive ventilation Able to talk in full sentences Anasarca improving Pendulous abdomen Nonlabored breathing Medical - PN: Obj Da - Labs CBC & Chem 7: 10/26/18 03:50 10/26/18 03:50 Labs: Abnormal Lab Results 10/26/18 10/26/18 10/25/18 03:50 03:50 03:57 RDW 14.8 H Lymph % (Auto) Lymph # (Auto) Seg Neutrophils % Lymphocytes % Nucleated RBCs Chloride 94 L Carbon Dioxide 31 H 35 H BUN 21 H Glucose 163 H Calcium 8.5 L GGT 63 H AST 38 H ALT 43 H Alkaline Phosphatase Lactate Dehydrogenase 260 H NT-Pro-B Natriuret Pep Urine Protein Urine Glucose (UA) Urine RBC 10/25/18 10/24/18 10/24/18 03:57 14:20 10:52 RDW Lymph % (Auto) Lymph # (Auto) Seg Neutrophils % 81 H Lymphocytes % 11 L Nucleated RBCs 1 H Chloride 92 L Carbon Dioxide 31 H BUN Glucose 157 H Calcium GGT AST ALT 43 H Alkaline Phosphatase 128 H Lactate Dehydrogenase NT-Pro-B Natriuret Pep 291.9 H Urine Protein >=500 A Urine Glucose (UA) 50 A Urine RBC 2 H 10/24/18 10:52 RDW Lymph % (Auto) 12.8 L Lymph # (Auto) 1.1 L Seg Neutrophils % Lymphocytes % Nucleated RBCs Chloride Carbon Dioxide BUN Glucose Calcium GGT AST ALT Alkaline Phosphatase Lactate Dehydrogenase NT-Pro-B Natriuret Pep Urine Protein Urine Glucose (UA) Urine RBC Meds: Medications Acetaminophen (Tylenol) 650 mg PO Q4-6HP PRN PRN Reason: PAIN/FEVER > 101 Acetazolamide Sodium (Diamox) 250 mg IV DAILY [facility] Stop: 10/27/18 09:01 Last Admin: 10/26/18 09:41 Dose: 250 mg Documented by: Albuterol/Ipratropium (Duoneb) 3 ml NEB Q4HP PRN PRN Reason: Shortness Of Breath Or Wheezing Budesonide (Pulmicort) 0.5 mg NEB BIDP PRN PRN Reason: Shortness Of Breath Or Wheezing Docusate Sodium (Colace) 100 mg PO BID [facility] Last Admin: 10/26/18 09:41 Dose: Not Given Documented by: Furosemide (Lasix) 20 mg IV Q8 [facility] Last Admin: 10/26/18 05:47 Dose: 20 mg Documented by: Guaifenesin/Codeine Phosphate (Robitussin Ac) 10 ml PO Q4HP PRN PRN Reason: Cough Heparin Sodium (Porcine) (Heparin) 5,000 unit SQ Q12 [facility] Last Admin: 10/26/18 09:42 Dose: 5,000 unit Documented by: Ceftriaxone Sodium 2 gm/ (Dextrose) 50 mls @ 100 mls/hr IV Q24H [facility]; Protocol Last Admin: 10/26/18 09:41 Dose: 100 mls/hr Documented by: Levofloxacin (Levaquin) 750 mg in 150 mls @ 100 mls/hr IV Q24H [facility]; Protocol Last Infusion: 10/25/18 12:45 Dose: Infused Documented by: Magnesium Sulfate (Magnesium Sulfate) 2 gm in 50 mls @ 50 mls/hr IV UD PRN PRN Reason: MG = or < 1.7 Last Infusion: 10/25/18 22:40 Dose: Infused Documented by: Acetaminophen (Ofirmev) 1,000 mg in 100 mls @ 200 mls/hr IV Q6HP PRN PRN Reason: PAIN/FEVER > 101 Last Infusion: 10/24/18 19:50 Dose: Infused Documented by: Iron Carb/Multivit/[employer]/Folic Acid (Multivitamin W/Minerals) 1 tab PO DAILY [facility] Last Admin: 10/26/18 09:41 Dose: 1 tab Documented by: Metoprolol Succinate (Toprol Xl) 12.5 mg PO DAILY [facility] Last Admin: 10/26/18 09:41 Dose: 12.5 mg Documented by: Nicotine (Nicoderm) 21 mg TOPICAL DAILY@1000 [facility] Ondansetron HCl (Zofran) 4 mg IV Q4-6HP PRN PRN Reason: Nausea And Vomiting Potassium Chloride (Klor-Con) 40 meq PO DAILYP PRN PRN Reason: K+ < 3.5 Senna/Docusate Sodium (Senna Plus Tablet) 1 tab PO HS [facility] Last Admin: 10/25/18 21:35 Dose: Not Given Documented by: Sodium Chloride (Saline Flush) 10 ml IV Q8 [facility] Last Admin: 10/26/18 09:42 Dose: 10 ml Documented by: Medical - PN: A/P - Time Spent With Patient Total time spent is greater than 50% in coordination of care (as documented) at patient's floor/unit and/or counseling patient: 25 - 35 minutes (1) Acute exacerbation of chronic obstructive airways disease Status: Acute Assessment and plan: * Acute Hypercapnic hypoxic respiratory failure-secondary to bronchopneumonia. Much improved. Off noninvasive ventilation. * Acute bronchopneumonia -continue additional dose 4 days Levaquin * Dilated cardiomyopathy with NYHA class III systolic heart failure. Echocardiogram four-chamber enlargement with dilated cardiomyopathy/ EF 40% Continue beta kain/DIANA inhibitor. Consider DIANA inhibitor prior to discharge * Morbid obesity. High probability OHS/MARKO in light of CO2 retention. Schedule sleep study as an outpatient on discharge * Anasarca clinically improving. * Full code * Prophylaxis heparin Plan * Transition to medical floor later today if remains off BiPAP * Lower diuretics * Continue low-dose beta kain/DIANA inhibitor on discharge * Continue Levaquin for additional 4 days * Schedule sleep study as outpatient * Schedule outpatient cardiology follow-up for management of Gatica cardi omyopathy Current Visit: Yes Medical - PN: Qual - VTE Deep Vein Thrombosis/Pulmonary Embolism Present on Admission: No
[2018-10-26] MEDS ORDERED: NICOTINE 21 MG PATCH TOPICAL SCH (10:00)
[2018-10-26] MEDS: LEVOFLOXACIN 750 MG/150 ML BAG IV SCH (11:00)
[2018-10-26] MEDS ORDERED: POTASSIUM CHLORIDE 20 MEQ PACKET PO PRN (11:41)
[2018-10-26] MEDS ORDERED: guaiFENesin/CODEINE 10 ML UDC PO PRN (11:41)
[2018-10-26] MEDS ORDERED: MAGNESIUM SULFATE 2 GM/50 ML BAG IV PRN (11:41)
[2018-10-26] MEDS ORDERED: ACETAMINOPHEN 1,000 MG/100 ML BOTTLE IV PRN (11:41)
[2018-10-26] MEDS ORDERED: ACETAMINOPHEN 325 MG TABLET PO PRN (11:41)
[2018-10-26] MEDS ORDERED: ONDANSETRON 4 MG/2 ML VIAL IV PRN (11:41)
--- NOTE | 2018-10-26 13:33 | Internal Med Progress Note ---
Medical - PN: Subj Patient information: Note initiated : 10/26/18 at 1:26 pm Service Date, if different from initiated Date: [] Patient: Arnie Diaz a 48 y/o M admitted on 10/24/18 for SOB, Chest Pressure. Chief Complaint: [] Interval history: Mr. 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 Patient endorses to a gradual onset of fluid retention along with increasing fatigue. He also complains of degenerative joint disease with bilateral knee pain for which he has been on NSAIDs. Swelling progressed to the point patient can barely flex his hand legs and fingers. Over the last few days he has not been able to function. He would get extremely dyspneic with limited exertion and even on rest. He has not been able to perform ADLs or his job due to above symptoms. He denies associated fever, chest pain, lightheadedness, dizziness,, productive sputum, loss of consciousness. He continues to smoke a pack a day. He presents to the ER with above symptoms. Initial workup was consistent with hypoxic hypercapnic respiratory failure with ABG 7.. Patient was initiated on BiPAP. CT angiogram revealed bronchopneumonia. Hospitalist services were consulted. At the time evaluation patient is currently on BiPAP. He is able to talk in short sentences. Was able to endorse history as above. Denies chest pain, sick contacts, changes in medications. Vaccination status unknown. Other than NSAIDs he denies taking any new medication or substance abuse 10/25-patient doing better. Over 6000 cc net negative fluid balance with aggressive diuresis. Echocardiogram reveals four-chamber enlargement with EF 40-50%. Continue diuresis/noninvasive ventilation. Repeat ABG pending. Attempt off BiPAP today. Clinically improving. Improved pannus inflammation. Repeat chest imaging in 24 hours. No overnight fever chills nausea vomiting or concerns per nursing staff. 10/26- patient off noninvasive ventilation. Much improved lymphedema. Over 10,000 cc net negative fluid balance. Lower diuretic dose to 40 mg Lasix once daily on discharge. Also recommend fluid restriction and follow cardiology for evaluation of dilated cardiomyopathy as outpatient. Transition of medical floor later today if remains off BiPAP. Continue beta kain and start low-dose DIANA inhibitor. De-escalate antibiotics to Levaquin only for bronchopneumonia. 10/27 - Constitutional Vitals: Vital Signs Temp Pulse Resp BP Pulse Ox 97.7 F 87 22 116/83 97 10/26/18 11:04 10/26/18 07:46 10/26/18 11:04 10/26/18 11:04 10/26/18 12:48 Period Temp Pulse Resp BP Sys/Nguyễn Pulse Ox Last 24 Hr 97.7 F-98.8 F 86-103 06-27 105-141/66-100 90-100 Intake and Output 10/25/18 10/26/18 10/26/18 21:59 05:59 13:59 Intake Total 1267 410 Output Total 2355 1600 870 Balance -1088 -1190 -870 Weight 167.461 kg Intake & Output: Intake & Output 10/25/18 10/26/18 10/26/18 21:59 05:59 13:59 Intake Total 1267 410 Output Total 2355 1600 870 Balance -1088 -1190 -870 Weight 167.461 kg Intake: IV 907 50 Sodium Chloride 0.9% 1,000 ml @ 907 50 mls/hr IV .Q20H [facility] Rx#: [id number] Oral 360 360 Output: Urine Catheter Amount 2355 1600 870 Other: Meal Lunch Percent of Meal Consumed 100% Feeding Ability Independent Urine Appearance Clear Clear Clear Uretheral (Esteves) Clear Clear Urine Color Bright Yellow Dark Yellow Pale Uretheral (Esteves) Pale Pale Bright Yellow Bright Yellow Exam: General: Alert, Awake, No acute Distress Eyes/N/T: EOMI, Head/Neck: neck supple, CV: RRR, No murmurs, normal s1/s2 Pulm: Clear b/l, no wheezing/rhonchi/rales Abd: soft, nontender, +BS x4 Ext: no clubbing/cyanosis. Anasarca Neuro: Alert, no focal deficits, moves all extremities, Skin: warm/dry Medical - PN: Obj Da - Labs CBC & Chem 7: 10/26/18 03:50 10/26/18 03:50 Labs: Abnormal Lab Results 10/26/18 10/26/18 10/25/18 03:50 03:50 03:57 RDW 14.8 H Lymph % (Auto) Lymph # (Auto) Seg Neutrophils % Lymphocytes % Nucleated RBCs Chloride 94 L Carbon Dioxide 31 H 35 H BUN 21 H Glucose 163 H Calcium 8.5 L GGT 63 H AST 38 H ALT 43 H Alkaline Phosphatase Lactate Dehydrogenase 260 H NT-Pro-B Natriuret Pep Urine Protein Urine Glucose (UA) Urine RBC 10/25/18 10/24/18 10/24/18 03:57 14:20 10:52 RDW Lymph % (Auto) Lymph # (Auto) Seg Neutrophils % 81 H Lymphocytes % 11 L Nucleated RBCs 1 H Chloride 92 L Carbon Dioxide 31 H BUN Glucose 157 H Calcium GGT AST ALT 43 H Alkaline Phosphatase 128 H Lactate Dehydrogenase NT-Pro-B Natriuret Pep 291.9 H Urine Protein >=500 A Urine Glucose (UA) 50 A Urine RBC 2 H 10/24/18 10:52 RDW Lymph % (Auto) 12.8 L Lymph # (Auto) 1.1 L Seg Neutrophils % Lymphocytes % Nucleated RBCs Chloride Carbon Dioxide BUN Glucose Calcium GGT AST ALT Alkaline Phosphatase Lactate Dehydrogenase NT-Pro-B Natriuret Pep Urine Protein Urine Glucose (UA) Urine RBC Meds: Medications Acetaminophen (Tylenol) 650 mg PO Q4-6HP PRN PRN Reason: PAIN/FEVER > 101 Acetazolamide Sodium (Diamox) 250 mg IV DAILY [facility] Stop: 10/27/18 09:01 Albuterol/Ipratropium (Duoneb) 3 ml NEB Q4HP PRN PRN Reason: Shortness Of Breath Or Wheezing Budesonide (Pulmicort) 0.5 mg NEB BIDP PRN PRN Reason: Shortness Of Breath Or Wheezing Docusate Sodium (Colace) 100 mg PO BID [facility] Furosemide (Lasix) 20 mg IV BID [facility] Guaifenesin/Codeine Phosphate (Robitussin Ac) 10 ml PO Q4HP PRN PRN Reason: Cough Heparin Sodium (Porcine) (Heparin) 5,000 unit SQ Q12 [facility] Levofloxacin (Levaquin) 750 mg in 150 mls @ 100 mls/hr IV Q24H [facility]; Protocol Magnesium Sulfate (Magnesium Sulfate) 2 gm in 50 mls @ 50 mls/hr IV UD PRN PRN Reason: MG = or < 1.7 Acetaminophen (Ofirmev) 1,000 mg in 100 mls @ 200 mls/hr IV Q6HP PRN PRN Reason: PAIN/FEVER > 101 Iron Carb/Multivit/Kane/Folic Acid (Multivitamin W/Minerals) 1 tab PO DAILY [facility] Lisinopril (Zestril) 2.5 mg PO DAILY [facility] Metoprolol Succinate (Toprol Xl) 12.5 mg PO DAILY [facility] Nicotine (Nicoderm) 21 mg TOPICAL DAILY@1000 [facility] Ondansetron HCl (Zofran) 4 mg IV Q4-6HP PRN PRN Reason: Nausea And Vomiting Potassium Chloride (Klor-Con) 40 meq PO DAILYP PRN PRN Reason: K+ < 3.5 Senna/Docusate Sodium (Senna Plus Tablet) 1 tab PO HS [facility] Sodium Chloride (Saline Flush) 10 ml IV Q8 [facility] Medical - PN: A/P - Time Spent With Patient Total time spent is greater than 50% in coordination of care (as documented) at patient's floor/unit and/or counseling patient: - Narrative A/P Narrative: A: *Acute Hypercapnic/hypoxic respiratory failure: 2/2 bronchopneumonia. Much improved. -Off noninvasive ventilation. *Acute bronchopneumonia: *Dilated cardiomyopathy with NYHA class III systolic heart failure: -Echocardiogram four-chamber enlargement with dilated cardiomyopathy, EF 40% *Morbid obesity: High probability OHS/MARKO in light of CO2 retention. Schedule sleep study as an outpatient on discharge *Anasarca clinically improving. Plan: -Wean down/off oxygen -continue additional dose 4 days Levaquin -Lower diuretics -continue low-dose beta kain/DIANA inhibitor/diuretics on discharge -Schedule sleep study as outpatient -Schedule outpatient cardiology follow-up for management of cardiomyopathy -ppx: heparin full code Medical - PN: Qual - VTE Deep Vein Thrombosis/Pulmonary Embolism Present on Admission: No
[2018-10-26] MEDS: SENNOSIDES/DOCUSATE SODIUM 1 TAB TABLET PO SCH ×2 (20:26→21:06)
[2018-10-26] MEDS ORDERED: FUROSEMIDE 20 MG/2 ML VIAL IV SCH (21:00)
[2018-10-27] MEDS: 0.9 % SODIUM CHLORIDE 10 ML SYRINGE IV SCH ×3 (05:36→21:20)
[2018-10-27 06:11] LABS: Mean Cell Volume 94.7 fL (80.0-100.0); Mean Corpuscular HGB Conc 31.1 g/dL (31.0-36.0); Platelet Count 199 K/mcL (140-440); RBC 5.41 M/mcL (4.50-5.90); Red Cell Distribution Width 15.3 % (11.5-14.5)
[2018-10-27 06:38] LABS: ALT/SGPT 65 U/l (0-40); Albumin 3.5 gm/dL (3.2-5.2); Alkaline Phosphatase 118 U/L (39-117); Bilirubin,Direct < 0.2 mg/dL (0.0-0.3); Blood Urea Nitrogen 26 mg/dl (6-20); Gamma Glutamyl Transpeptidase 66 U/L (8-61)
--- NOTE | 2018-10-27 07:40 | Internal Med Progress Note ---
Medical - PN: Subj Patient information: Note initiated : 10/27/18 at 7:36 am Service Date, if different from initiated Date: [] Patient: Arnie Diaz a 48 y/o M admitted on 10/24/18 for SOB, Chest Pressure. Chief Complaint: [] Interval history: Mr. 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 Patient endorses to a gradual onset of fluid retention along with increasing fatigue. He also complains of degenerative joint disease with bilateral knee pain for which he has been on NSAIDs. Swelling progressed to the point patient can barely flex his hand legs and fingers. Over the last few days he has not been able to function. He would get extremely dyspneic with limited exertion and even on rest. He has not been able to perform ADLs or his job due to above symptoms. He denies associated fever, chest pain, lightheadedness, dizziness,, productive sputum, loss of consciousness. He continues to smoke a pack a day. He presents to the ER with above symptoms. Initial workup was consistent with hypoxic hypercapnic respiratory failure with ABG 7.. Patient was initiated on BiPAP. CT angiogram revealed bronchopneumonia. Hospitalist services were consulted. At the time evaluation patient is currently on BiPAP. He is able to talk in short sentences. Was able to endorse history as above. Denies chest pain, sick contacts, changes in medications. Vaccination status unknown. Other than NSAIDs he denies taking any new medication or substance abuse 10/25-patient doing better. Over 6000 cc net negative fluid balance with aggressive diuresis. Echocardiogram reveals four-chamber enlargement with EF 40-50%. Continue diuresis/noninvasive ventilation. Repeat ABG pending. Attempt off BiPAP today. Clinically improving. Improved pannus inflammation. Repeat chest imaging in 24 hours. No overnight fever chills nausea vomiting or concerns per nursing staff. 10/26- patient off noninvasive ventilation. Much improved lymphedema. Over 10,000 cc net negative fluid balance. Lower diuretic dose to 40 mg Lasix once daily on discharge. Also recommend fluid restriction and follow cardiology for evaluation of dilated cardiomyopathy as outpatient. Transition of medical floor later today if remains off BiPAP. Continue beta kain and start low-dose DIANA inhibitor. De-escalate antibiotics to Levaquin only for bronchopneumonia. 10/27 Overall feeling improved. He feels the shortness of breath is about 75% back to baseline. He still has a productive cough of yellow sputum. No other new complaints. He oxygenates pretty well while awake on very minimal oxygen however when he sleeps he desats significantly even on oxygen, he really needs positive end-expiratory pressure. Edema improving. He states his weight was 345 pounds 6 months ago and probably 325 a year ago. Review of Systems: denies headache/fever/chills/nausea/vomiting/chest or abdominal pain/diarrhea. Otherwise see above. - Constitutional Vitals: Vital Signs Temp Pulse Resp BP Pulse Ox 97.5 F 84 19 110/68 99 10/27/18 03:41 10/27/18 05:00 10/27/18 05:00 10/27/18 03:41 10/27/18 05:00 Period Temp Pulse Resp BP Sys/Nguyễn Pulse Ox Last 24 Hr 97.5 F-98.4 F 84-95 14-22 108-137/68-95 90-100 Intake and Output 10/26/18 10/27/18 10/27/18 21:59 05:59 13:59 Intake Total 560 360 Output Total 500 1450 Balance 60 -1090 Weight 165.879 kg Intake & Output: Intake & Output 10/26/18 10/27/18 10/27/18 21:59 05:59 13:59 Intake Total 560 360 Output Total 500 1450 Balance 60 -1090 Weight 165.879 kg Intake: IV 200 Oral 360 360 Output: Urine Catheter Amount 500 1450 Other: Meal Dinner Percent of Meal Consumed 100% Feeding Ability Independent Urine Appearance Clear Uretheral (Esteves) Clear Urine Color Bright Yellow Pale Uretheral (Esteves) Pale Urine Odor Normal Stool Size Large Stool Color Brown Stool Consistency Soft # Bowel Movements 1 Exam: General: Alert, Awake, No acute Distress Eyes/N/T: EOMI, Head/Neck: neck supple, CV: RRR, No murmurs, normal s1/s2 Pulm: mild exp wheeze, no appreciable rales, diminished Abd: soft, nontender, +BS x4, rotund Ext: no clubbing/cyanosis. Anasarca improved, UE's better, LE now 2+ Neuro: Alert, no focal deficits, moves all extremities, Skin: warm/dry Medical - PN: Obj Da - Labs CBC & Chem 7: 10/27/18 03:28 10/27/18 03:28 Labs: Abnormal Lab Results 10/27/18 10/27/18 10/26/18 03:28 03:28 03:50 RDW 15.3 H Lymph % (Auto) Lymph # (Auto) Seg Neutrophils % Lymphocytes % Nucleated RBCs Chloride Carbon Dioxide 32 H 31 H BUN 26 H 21 H Glucose 106 H Calcium Phosphorus 5.3 H GGT 66 H 63 H AST 54 H 38 H ALT 65 H 43 H Alkaline Phosphatase 118 H Lactate Dehydrogenase 260 H NT-Pro-B Natriuret Pep Triglycerides 195 H Urine Protein Urine Glucose (UA) Urine RBC 10/26/18 10/25/18 10/25/18 03:50 03:57 03:57 RDW 14.8 H Lymph % (Auto) Lymph # (Auto) Seg Neutrophils % 81 H Lymphocytes % 11 L Nucleated RBCs 1 H Chloride 94 L Carbon Dioxide 35 H BUN Glucose 163 H Calcium 8.5 L Phosphorus GGT AST ALT Alkaline Phosphatase Lactate Dehydrogenase NT-Pro-B Natriuret Pep Triglycerides Urine Protein Urine Glucose (UA) Urine RBC 10/24/18 10/24/18 10/24/18 14:20 10:52 10:52 RDW Lymph % (Auto) 12.8 L Lymph # (Auto) 1.1 L Seg Neutrophils % Lymphocytes % Nucleated RBCs Chloride 92 L Carbon Dioxide 31 H BUN Glucose 157 H Calcium Phosphorus GGT AST ALT 43 H Alkaline Phosphatase 128 H Lactate Dehydrogenase NT-Pro-B Natriuret Pep 291.9 H Triglycerides Urine Protein >=500 A Urine Glucose (UA) 50 A Urine RBC 2 H Meds: Medications Acetaminophen (Tylenol) 650 mg PO Q4-6HP PRN PRN Reason: PAIN/FEVER > 101 Acetazolamide Sodium (Diamox) 250 mg IV DAILY [facility] Stop: 10/27/18 09:01 Albuterol/Ipratropium (Duoneb) 3 ml NEB Q4HP PRN PRN Reason: Shortness Of Breath Or Wheezing Last Admin: 10/26/18 21:26 Dose: 3 ml Documented by: Budesonide (Pulmicort) 0.5 mg NEB BIDP PRN PRN Reason: Shortness Of Breath Or Wheezing Docusate Sodium (Colace) 100 mg PO BID [facility] Last Admin: 10/26/18 21:06 Dose: Not Given Documented by: Furosemide (Lasix) 20 mg IV BID [facility] Last Admin: 10/26/18 20:26 Dose: 20 mg Documented by: Guaifenesin/Codeine Phosphate (Robitussin Ac) 10 ml PO Q4HP PRN PRN Reason: Cough Heparin Sodium (Porcine) (Heparin) 5,000 unit SQ Q12 [facility] Last Admin: 10/26/18 20:26 Dose: 5,000 unit Documented by: Levofloxacin (Levaquin) 750 mg in 150 mls @ 100 mls/hr IV Q24H [facility]; Protocol Magnesium Sulfate (Magnesium Sulfate) 2 gm in 50 mls @ 50 mls/hr IV UD PRN PRN Reason: MG = or < 1.7 Acetaminophen (Ofirmev) 1,000 mg in 100 mls @ 200 mls/hr IV Q6HP PRN PRN Reason: PAIN/FEVER > 101 Iron Carb/Multivit/[place]/Folic Acid (Multivitamin W/Minerals) 1 tab PO DAILY [facility] Lisinopril (Zestril) 2.5 mg PO DAILY [facility] Metoprolol Succinate (Toprol Xl) 12.5 mg PO DAILY [facility] Nicotine (Nicoderm) 21 mg TOPICAL DAILY@1000 [facility] Ondansetron HCl (Zofran) 4 mg IV Q4-6HP PRN PRN Reason: Nausea And Vomiting Potassium Chloride (Klor-Con) 40 meq PO DAILYP PRN PRN Reason: K+ < 3.5 Senna/Docusate Sodium (Senna Plus Tablet) 1 tab PO HS [facility] Last Admin: 10/26/18 21:06 Dose: Not Given Documented by: Sodium Chloride (Saline Flush) 10 ml IV Q8 [facility] Last Admin: 10/27/18 05:36 Dose: 10 ml Documented by: Medical - PN: A/P - Time Spent With Patient Total time spent is greater than 50% in coordination of care (as documented) at patient's floor/unit and/or counseling patient: - Narrative A/P Narrative: A: *Acute Hypercapnic/hypoxic respiratory failure: 2/2 bronchopneumonia. Much improved. -CPAP@night -on 2L NC while awake but desats with cpap while sleeping -CTA no PE, narrowed bronchi b/l, b/l PNA, no emphysema *Acute bronchopneumonia: *Dilated cardiomyopathy with NYHA class III systolic heart failure: -Echocardiogram four-chamber mild-mod enlargement, EF 40-50%, diastolic fxn ok. *Anasarca: improving *Morbid obesity: High probability OHS/MARKO in light of CO2 retention. Schedule sleep study as an outpatient on discharge *MARKO/OHS: *Tobacco abuse: Plan: -Wean down/off oxygen -CPAP@night -continue Levaquin -lasix bid -continue low-dose beta kain/DIANA inhibitor/diuretics on discharge -Schedule sleep study as outpatient -Schedule outpatient cardiology follow-up for management of cardiomyopathy -Smoking cessation counseling -ppx: heparin full code Medical - PN: Qual - VTE Deep Vein Thrombosis/Pulmonary Embolism Present on Admission: No
[2018-10-27 08:08] LABS: Band Neutrophils % 4 % (0-10); Lymphocytes % 27 % (15-49); Metamyelocytes % 1 % (0-0); Monocytes % (Manual) 9 % (1-12); Platelet Estimate NORMAL (NORMAL); RBC Morphology ABNORM (NORMAL); Segmented Neutrophils % 59 % (38-78)
[2018-10-27] MEDS: DOCUSATE SODIUM 100 MG CAPSULE PO SCH ×2 (08:28→21:20)
[2018-10-27] MEDS: FUROSEMIDE 20 MG/2 ML VIAL IV SCH ×2 (08:38→21:19)
[2018-10-27] MEDS: HEPARIN 5,000 UNIT/ML VIAL SQ SCH ×2 (08:39→21:19)
[2018-10-27] MEDS: LISINOPRIL 5 MG TABLET PO SCH (08:56)
[2018-10-27] MEDS: MULTIVIT,THER IRON,CA,FA & MIN 1 TABLET PO SCH (08:56)
[2018-10-27] MEDS: METOPROLOL SUCCINATE 25 MG TAB.XL.24H PO SCH (08:56)
[2018-10-27] MEDS ORDERED: acetaZOLAMIDE SOD 500 MG VIAL IV SCH (09:00)
[2018-10-27] MEDS ORDERED: LEVOFLOXACIN 750 MG/150 ML BAG IV SCH (10:00)
[2018-10-27] MEDS: NICOTINE 21 MG PATCH TOPICAL SCH (10:05)
[2018-10-27] MEDS ORDERED: acetaZOLAMIDE SOD 500 MG VIAL IV ONE (11:15)
--- NOTE | 2018-10-27 11:17 | XRay Report ---
HISTORY: Hypoxia with shortness of breath and chest pressure FINDINGS: There is a thin band of discoid atelectasis paralleling the right diaphragm. There may be another smaller band of atelectasis at the left lung base. The lungs are otherwise clear. The heart is mildly enlarged but magnified by portable technique. The pulmonary vasculature appears normal in caliber. There is no pleural effusion. IMPRESSION: Mild cardiomegaly, without congestive heart failure Thin bands of discoid atelectasis adjacent to the diaphragms Interpreted and Authenticated by: Butch Cueto 10/27/18
[2018-10-27] MEDS: SENNOSIDES/DOCUSATE SODIUM 1 TAB TABLET PO SCH (21:20)
[2018-10-28] MEDS: 0.9 % SODIUM CHLORIDE 10 ML SYRINGE IV SCH (05:20)
--- NOTE | 2018-10-28 07:16 | Internal Med Progress Note ---
Medical - PN: Subj Patient information: Note initiated : 10/28/18 at 7:13 am Service Date, if different from initiated Date: [] Patient: Arnie Diaz a 48 y/o M admitted on 10/24/18 for SOB, Chest Pressure. Chief Complaint: [] Interval history: Mr. 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 Patient endorses to a gradual onset of fluid retention along with increasing fatigue. He also complains of degenerative joint disease with bilateral knee pain for which he has been on NSAIDs. Swelling progressed to the point patient can barely flex his hand legs and fingers. Over the last few days he has not been able to function. He would get extremely dyspneic with limited exertion and even on rest. He has not been able to perform ADLs or his job due to above symptoms. He denies associated fever, chest pain, lightheadedness, dizziness,, productive sputum, loss of consciousness. He continues to smoke a pack a day. He presents to the ER with above symptoms. Initial workup was consistent with hypoxic hypercapnic respiratory failure with ABG 7.. Patient was initiated on BiPAP. CT angiogram revealed bronchopneumonia. Hospitalist services were consulted. At the time evaluation patient is currently on BiPAP. He is able to talk in short sentences. Was able to endorse history as above. Denies chest pain, sick contacts, changes in medications. Vaccination status unknown. Other than NSAIDs he denies taking any new medication or substance abuse 10/25-patient doing better. Over 6000 cc net negative fluid balance with aggressive diuresis. Echocardiogram reveals four-chamber enlargement with EF 40-50%. Continue diuresis/noninvasive ventilation. Repeat ABG pending. Attempt off BiPAP today. Clinically improving. Improved pannus inflammation. Repeat chest imaging in 24 hours. No overnight fever chills nausea vomiting or concerns per nursing staff. 10/26- patient off noninvasive ventilation. Much improved lymphedema. Over 10,000 cc net negative fluid balance. Lower diuretic dose to 40 mg Lasix once daily on discharge. Also recommend fluid restriction and follow cardiology for evaluation of dilated cardiomyopathy as outpatient. Transition of medical floor later today if remains off BiPAP. Continue beta kain and start low-dose DIANA inhibitor. De-escalate antibiotics to Levaquin only for bronchopneumonia. 10/27 Overall feeling improved. He feels the shortness of breath is about 75% back to baseline. He still has a productive cough of yellow sputum. No other new complaints. He oxygenates pretty well while awake on very minimal oxygen however when he sleeps he desats significantly even on oxygen, he really needs positive end-expiratory pressure. Edema improving. He states his weight was 345 pounds 6 months ago and probably 325 a year ago. 10/28 There is report patient of patient desatting on his CPAP last night and was switched to bipap machine. However, the CPAP device did not seem to be placed securely, with air blowing up into his eyes. It was placed on him again early this morning and he maintained his oxygen at least 90%. He has a his continued cough of mild sputum production. He feels his shortness of breath is 95% back to normal. No other new complaints. Feeling much better. And adamant about going home today. He will be staying with a friend. He did quite well with physical therapy today and went down the 88% when he ambulated but returned to 90 after resting, this is all on room air. However he eventually did drop his saturations and and needed to be placed back on oxygen Review of Systems: denies headache/fever/chills/nausea/vomiting/chest or abdominal pain/diarrhea. Otherwise see above. - Constitutional Vitals: Vital Signs Temp Pulse Resp BP Pulse Ox 97.7 F 84 26 H 130/80 94 10/28/18 04:29 10/27/18 05:00 10/28/18 04:29 10/28/18 04:29 10/28/18 04:29 Period Temp Pulse Resp BP Sys/Nguyễn Pulse Ox Last 24 Hr 97.2 F-98.8 F 16- 110-130/71-80 81-98 Intake and Output 10/27/18 10/28/18 10/28/18 21:59 05:59 13:59 Intake Total 150 Output Total 975 725 Balance -825 -725 Weight 162.885 kg Intake & Output: Intake & Output 10/27/18 10/28/18 10/28/18 21:59 05:59 13:59 Intake Total 150 Output Total 975 725 Balance -825 -725 Weight 162.885 kg Intake: IV 150 Output: Urine Catheter Amount 437 725 Other: Meal Dinner Percent of Meal Consumed 100% Feeding Ability Assist with Tray Set Up Urine Appearance Clear Clear Uretheral (Esteves) Clear Urine Color Pale Pale Uretheral (Esteves) Pale Urine Odor Normal Exam: General: Alert, Awake, No acute Distress Eyes/N/T: EOMI, Head/Neck: neck supple, CV: RRR, No murmurs, normal s1/s2 Pulm: mild exp wheeze, no appreciable rales, diminished Abd: soft, nontender, +BS x4, rotund Ext: no clubbing/cyanosis. Anasarca much improved, UE's better, LE now 1+ greatly improved Neuro: Alert, no focal deficits, moves all extremities, Skin: warm/dry Medical - PN: Obj Da - Labs CBC & Chem 7: 10/27/18 03:28 10/27/18 03:28 Labs: Abnormal Lab Results 10/27/18 10/27/18 10/26/18 03:28 03:28 03:50 RDW 15.3 H Metamyelocytes % 1 H RBC Morphology Abnorm A Polychromasia 1+ A Carbon Dioxide 32 H 31 H BUN 26 H 21 H Glucose 106 H Phosphorus 5.3 H GGT 66 H 63 H AST 54 H 38 H ALT 65 H 43 H Alkaline Phosphatase 118 H Lactate Dehydrogenase 260 H Triglycerides 195 H 10/26/18 03:50 RDW 14.8 H Metamyelocytes % RBC Morphology Polychromasia Carbon Dioxide BUN Glucose Phosphorus GGT AST ALT Alkaline Phosphatase Lactate Dehydrogenase Triglycerides Meds: Medications Acetaminophen (Tylenol) 650 mg PO Q4-6HP PRN PRN Reason: PAIN/FEVER > 101 Albuterol/Ipratropium (Duoneb) 3 ml NEB Q4HP PRN PRN Reason: Shortness Of Breath Or Wheezing Last Admin: 10/26/18 21:26 Dose: 3 ml Documented by: Budesonide (Pulmicort) 0.5 mg NEB BIDP PRN PRN Reason: Shortness Of Breath Or Wheezing Docusate Sodium (Colace) 100 mg PO BID [facility] Last Admin: 10/27/18 21:20 Dose: Not Given Documented by: Furosemide (Lasix) 20 mg IV BID [facility] Last Admin: 10/27/18 21:19 Dose: 20 mg Documented by: Guaifenesin/Codeine Phosphate (Robitussin Ac) 10 ml PO Q4HP PRN PRN Reason: Cough Heparin Sodium (Porcine) (Heparin) 5,000 unit SQ Q12 [facility] Last Admin: 10/27/18 21:19 Dose: 5,000 unit Documented by: Levofloxacin (Levaquin) 750 mg in 150 mls @ 100 mls/hr IV Q24H [facility]; Protocol Last Infusion: 10/27/18 21:46 Dose: Infused Documented by: Magnesium Sulfate (Magnesium Sulfate) 2 gm in 50 mls @ 50 mls/hr IV UD PRN PRN Reason: MG = or < 1.7 Iron Carb/Multivit/Radiological Equipment Specialist/Folic Acid (Multivitamin W/Minerals) 1 tab PO DAILY [facility] Last Admin: 10/27/18 08:56 Dose: 1 tab Documented by: Lisinopril (Zestril) 2.5 mg PO DAILY [facility] Last Admin: 10/27/18 08:56 Dose: 2.5 mg Documented by: Metoprolol Succinate (Toprol Xl) 12.5 mg PO DAILY [facility] Last Admin: 10/27/18 08:56 Dose: 12.5 mg Documented by: Nicotine (Nicoderm) 21 mg TOPICAL DAILY@1000 [facility] Last Admin: 10/27/18 10:05 Dose: Not Given Documented by: Ondansetron HCl (Zofran) 4 mg IV Q4-6HP PRN PRN Reason: Nausea And Vomiting Potassium Chloride (Klor-Con) 40 meq PO DAILYP PRN PRN Reason: K+ < 3.5 Senna/Docusate Sodium (Senna Plus Tablet) 1 tab PO HS [facility] Last Admin: 10/27/18 21:20 Dose: Not Given Documented by: Sodium Chloride (Saline Flush) 10 ml IV Q8 [facility] Last Admin: 10/28/18 05:20 Dose: 10 ml Documented by: Medical - PN: A/P - Time Spent With Patient Total time spent is greater than 50% in coordination of care (as documented) at patient's floor/unit and/or counseling patient: - Narrative A/P Narrative: A: *Acute Hypercapnic/hypoxic respiratory failure: 2/2 bronchopneumonia. Much improved. -CPAP@night -on 2L NC while awake but desats with cpap while sleeping -CTA no PE, narrowed bronchi b/l, b/l PNA, no emphysema *Acute bronchopneumonia: *Dilated cardiomyopathy with NYHA class III systolic heart failure: -Echocardiogram four-chamber mild-mod enlargement, EF 40-50%, diastolic fxn ok. -states he weighed 345lbs 6-mos ago -has diuresed ~19kg (~14k Net) *Anasarca: improving *Morbid obesity: High probability OHS/MARKO in light of CO2 retention. Schedule sleep study as an outpatient on discharge -Maintained oxygenation on CPAP machine when secured properly without leaks *MARKO/OHS: *Tobacco abuse: Plan: -Wean down/off oxygen -CPAP@night -continue Levaquin -lasix bid to oral -continue low-dose beta kain/DIANA inhibitor/diuretics on discharge -Schedule sleep study as outpatient -Schedule outpatient cardiology follow-up for management of cardiomyopathy -Smoking cessation counseling -ppx: heparin full code Medical - PN: Qual - VTE Deep Vein Thrombosis/Pulmonary Embolism Present on Admission: No
[2018-10-28] MEDS: HEPARIN 5,000 UNIT/ML VIAL SQ SCH (08:51)
[2018-10-28] MEDS: METOPROLOL SUCCINATE 25 MG TAB.XL.24H PO SCH (08:51)
[2018-10-28] MEDS: MULTIVIT,THER IRON,CA,FA & MIN 1 TABLET PO SCH (08:52)
[2018-10-28] MEDS: LISINOPRIL 5 MG TABLET PO SCH (08:52)
[2018-10-28] MEDS: DOCUSATE SODIUM 100 MG CAPSULE PO SCH (08:52)
[2018-10-28] MEDS: FUROSEMIDE 20 MG/2 ML VIAL IV SCH (08:52)
[2018-10-28] MEDS ORDERED: LEVOFLOXACIN 750 MG TABLET PO ONE (09:20)
--- NOTE | 2018-10-28 09:21 | Discharge Summary ---
Medical - DS: Prov Patient information: Note initiated : 10/28/18 at 9:15 am Service Date, if different from initiated Date: [] Patient: Arnie Diaz 48 y/o M admitted on 10/24/18 for SOB, Chest Pressure. Chief Complaint: [] Date of admission: 10/24/18 14:55 Discharge date: 10/28/18 Primary care physician: Lucía Xavier Medical - DS: Meds - Discharge Medications Prescriptions: Furosemide [Lasix] 40 mg PO DAILY #60 tab Levofloxacin [Levaquin] 750 mg PO DAILY #2 tab Lisinopril [Zestril] 2.5 mg PO DAILY #30 tab Metoprolol Succinate [Toprol Xl] 12.5 mg PO DAILY #30 tab.xl.24h Active and Home Medications: Home Medications traMADol [Ultram] 50 - 100 mg PO Q6-8HP PRN 10/24/18 [History Confirmed 10/24/18 Last Taken Unknown] Home Medications traMADol [Ultram] 50 - 100 mg PO Q6-8HP PRN 10/24/18 [History Confirmed 10/24/18 Last Taken Unknown] Furosemide [Lasix] 40 mg PO DAILY #60 tab 10/28/18 [Rx Last Taken Unknown] Levofloxacin [Levaquin] 750 mg PO DAILY #2 tab 10/28/18 [Rx Last Taken Unknown] Lisinopril [Zestril] 2.5 mg PO DAILY #30 tab 10/28/18 [Rx Last Taken Unknown] Metoprolol Succinate [Toprol Xl] 12.5 mg PO DAILY #30 tab.xl.24h 10/28/18 [Rx Last Taken Unknown] Medical - DS: Hosp Hospital course: Mr. Diaz is a 48 year old M Mr. 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 Patient endorses to a gradual onset of fluid retention along with increasing fatigue. He also complains of degenerative joint disease with bilateral knee pain for which he has been on NSAIDs. Swelling progressed to the point patient can barely flex his hand legs and fingers. Over the last few days he has not been able to function. He would get extremely dyspneic with limited exertion and even on rest. He has not been able to perform ADLs or his job due to above symptoms. He denies associated fever, chest pain, lightheadedness, dizziness,, productive sputum, loss of consciousness. He continues to smoke a pack a day. He presents to the ER with above symptoms. Initial workup was consistent with hypoxic hypercapnic respiratory failure with ABG 7.. Patient was initiated on BiPAP. CT angiogram revealed bronchopneumonia. Hospitalist services were consulted. At the time evaluation patient is currently on BiPAP. He is able to talk in short sentences. Was able to endorse history as above. Denies chest pain, sick contacts, changes in medications. Vaccination status unknown. Other than NSAIDs he denies taking any new medication or substance abuse 10/25-patient doing better. Over 6000 cc net negative fluid balance with agg ressive diuresis. Echocardiogram reveals four-chamber enlargement with EF 40- 50%. Continue diuresis/noninvasive ventilation. Repeat ABG pending. Attempt off BiPAP today. Clinically improving. Improved pannus inflammation. Repeat chest imaging in 24 hours. No overnight fever chills nausea vomiting or concerns per nursing staff. 10/26- patient off noninvasive ventilation. Much improved lymphedema. Over 10,000 cc net negative fluid balance. Lower diuretic dose to 40 mg Lasix once daily on discharge. Also recommend fluid restriction and follow cardiology for evaluation of dilated cardiomyopathy as outpatient. Transition of medical floor later today if remains off BiPAP. Continue beta kain and start low-dose DIANA inhibitor. De-escalate antibiotics to Levaquin only for bronchopneumonia. 10/27 Overall feeling improved. He feels the shortness of breath is about 75% back to baseline. He still has a productive cough of yellow sputum. No other new complaints. He oxygenates pretty well while awake on very minimal oxygen however when he sleeps he desats significantly even on oxygen, he really needs positive end-expiratory pressure. Edema improving. He states his weight was 345 pounds 6 months ago and probably 325 a year ago. 10/28 There is report patient of patient desatting on his CPAP last night and was switched to bipap machine. However, the CPAP device did not seem to be placed securely, with air blowing up into his eyes. It was placed on him again early this morning and he maintained his oxygen at least 90%. He has a his continued cough of mild sputum production. He feels his shortness of breath is 95% back to normal. No other new complaints. Feeling much better. And adamant about going home today. He will be staying with a friend. He did quite well with physical therapy today and went down the 88% when he ambulated but returned to 90 after resting, this is all on room air. However he eventually did drop his saturations and and needed to be placed back on oxygen. He did qualify for home oxygen. Further adjustments made with the CPAP machine by RT. Patient has been sleeping and satting well with the new settings. Stable for discharge Discharge diagnosis: Hypercapnic/hypoxic respiratory failure pneumonia human metapneumovirus Secondary discharge diagnosis: Acute dilated cardiomyopathy with systolic heart failure Anasarca Morbid obesity Obstructive sleep apnea and likely obesity hypo-ventilation syndrome Tobacco abuse - Time Spent with Patient Total time spent providing and/or coordinating discharge services: Greater than 30 minutes Medical - DS: Exam - Constitutional Vitals: Vital Signs Temp Resp BP BP Pulse Ox 10/28/18 04:29 97.7 F 26 H 130/80 94 10/28/18 00:01 130/73 10/28/18 00:00 97.8 F 19 130/73 98 10/27/18 22:43 126/71 10/27/18 21:44 81 L 10/27/18 20:01 98.8 F 18 126/71 93 10/27/18 19:39 98.5 F 16 115/78 115/78 87 L 10/27/18 16:01 118/76 10/27/18 16:00 97.2 F 20 118/76 97 10/27/18 15:45 110/75 10/27/18 12:07 89 L 10/27/18 11:41 98.2 F 20 116/77 97 10/27/18 11:39 116/77 93 Intake and Output 10/27/18 10/28/18 10/28/18 21:59 05:59 13:59 Intake Total 150 Output Total 975 725 Balance -825 -725 Intake: IV 150 Output: Urine Catheter Amount 975 725 Other: Meal Dinner Percent of Meal Consumed 100% Feeding Ability Assist with Tray Set Up Urine Appearance Clear Clear Uretheral (Esteves) Clear Urine Color Pale Pale Uretheral (Esteves) Pale Urine Odor Normal Weight 162.885 kg Medical - DS: A/P - Patient/Caregiver Discharge Instructions Activity: increase activity as tolerated Diet: Cardiac Additional Instructions: Needs outpatient sleep study and referral to see internal affairs investigator 1 to 2 weeks Referral to see cardiology for cardiomyopathy 1 to 2 weeks Prescriptions: Furosemide [Lasix] 40 mg PO DAILY #60 tab Levofloxacin [Levaquin] 750 mg PO DAILY #2 tab Lisinopril [Zestril] 2.5 mg PO DAILY #30 tab Metoprolol Succinate [Toprol Xl] 12.5 mg PO DAILY #30 tab.xl.24h - Follow up Plan Follow up with: Lucía Xavier ARNP [Primary Care Provider] - 11/03/18 1:45 pm Disposition: Home, Self-Care Prognosis: Fair Rehab Potential: Fair Overall status at discharge: patient is progressing back to baseline Medical - DS: Qual - VTE Deep Vein Thrombosis/Pulmonary Embolism Present on Admission: No
[2018-10-28] MEDS: NICOTINE 21 MG PATCH TOPICAL SCH (10:21)
[2018-10-29] MEDS ORDERED: FUROSEMIDE 40 MG TABLET PO SCH (09:00)
== END 2018-10-28 16:36 | disposition home or self-care (01) | DRG 193 ==
LOC: ED 10:37 → ICU 14:55
PROVIDERS: ADMIT Internal Medicine; ATTEND Internal Medicine